=== PATIENT | male | born 1990 | race African-American/Black ===

== ENCOUNTER 2022-05-06 20:40 | Emergency (ER) | payer OTHER ==
[~2022-05-06] VITALS: Ht 180.3 cm; Wt 77.3 kg
[2022-05-06 22:56] VITALS: BP 127/75
[2022-05-07] MEDS ORDERED: VALA500T34 PO (00:40)
== END 2022-05-07 00:48 | disposition home or self-care (01) ==
LOC: EMS 20:46
DX: B00.9 Herpesviral infection, unspecified (principal)
CPT/HCPCS: 86695; 86696; 99283